=== PATIENT | female | born 2000 | race Caucasian/White ===

== ENCOUNTER 2021-06-12 19:29 | Inpatient (IN) | payer SELFPAY ==
[2021-06-12 19:31] VITALS: BP 153/92; PULSE 134; RESP 18; TEMP 39.4; O2SAT 98; BMI 27.1
[2021-06-12 19:35] VITALS: BP 148/84; PULSE 132; PULSE 135; RESP 21; RESP 25; TEMP 39.4; O2SAT 97; O2SAT 98
--- NOTE | 2021-06-12 20:04 | US_ITS ---
STUDY: ULTRASOUND OF THE FEMALE PELVIS - COMPLETE REASON FOR EXAM: Female, 21 years old. Fever post -- LMP: Unknown. TECHNIQUE: Transabdominal TECHNICAL QUALITY: Adequate. COMPARISON: None. FINDINGS: The uterus is anteverted and is in a midline position. The uterus measures 16.5 x 10.9 x 6.6 cm. Normal uterine cervix. The endometrium measures 30 mm in thickness, and is complex fluid distended. There is no demonstrated endometrial mass. There is no demonstrated myometrial mass. I.U.D. - The patient does not have an I.U.D. The right ovary is visualized. The right ovary measures 2.8 x 1.6 x 1.2 cm. There is no right ovarian cyst or ovarian mass. There is no visualized right adnexal mass or complex lesion. There is normal arterial and normal venous vascularity. The left ovary is non-visualized. There is no fluid in the cul-de-sac. The pre void volume of the bladder was 660 ml. US/Pelvic (Non ) IMPRESSION: Enlarged complex fluid distended endometrium with possible retained products of conception. Electronically Signed: Bronson Richardson MD at 22:52 EDT Reading Location ID and State: [facility] / [place] , Service support ,
--- NOTE | 2021-06-12 20:07 | EDS_ITS ---
HPI HPI - Female History of Present Illness Chief Complaint: Fever Detail of Chief Complaint: Not feeling well post delivery about 1 week ago. Informant: patient Pain Pain: Negative for Pelvic Pain Bleeding Issue: Positive for Vaginal bleeding; Negative for Passing clots and Passing tissue Timing: Intermittent Current Severity: Mild Maximum Severity: Mild Associated Symptoms Associated Symptoms: Negative for Dysuria, Frequency, Urgency and Hematuria P: 1 Ab: 0 Narrative Narrative: [id number] female medical history. Ab0. Had a full-term vaginal delivery about a week ago at [facility]. Post while she was still at the facility she had a fever for maybe a day. Has been doing well. Today said she got anxious after the was circumcised. And was not feeling well. She denies any nausea or vomiting. Denies diarrhea. Denies cough or shortness of breath. Says she still having some bleeding amount of discharge but is not heavy. She denies any significant pelvic pain or dysuria. Prior similar symptoms: No Recent Illness/Hospitalization: No PFSH PFSH Medical History Anxiety Allergy/AdvReac Type Severity Reaction Status Date / Time No Known Allergies Allergy Verified 06/12/21 23:03 Social History Smoking Status: Never smoker ROS ROS ED ROS Narrative Fever. Review of Systems ROS Unobtainable: Denies due to encephalopathy Constitutional Constitutional ED: Reports fever(s) and subjective Eyes Eyes: Denies change in vision ENT ENT ED: Denies ear pain, rhinorrhea or sore throat Cardiovascular Cardiovascular: Denies chest pain Respiratory/Chest Respiratory/Chest: Denies cough, dyspnea or stridor Gastrointestinal Gastrointestinal: Denies abdominal pain, diarrhea, nausea or vomiting Genitourinary Genitourinary ED: Denies dysuria Musculoskeletal Musculoskeletal: Denies myalgias Integumentary Denies rash Neurologic Neurologic: Denies headache(s) Psychiatric Psychiatric: Denies depression Endocrine Endocrinology: Denies polyuria Hematologic/Lymphatic Hematologic/Lymphatic: Denies easy bruising Allergic/Immunologic Allergic/Immunologic ED: Denies urticaria EXAM Physical Exam Narrative Exam Narrative: 29-year-old no acute distress vital signs stable. She does have a fever 102.9 is tachycardic 135. Does not look septic or toxic. H EENT exam unremarkable. Posterior pharynx normal. Neck nontender no meningismus. Lungs clear to auscultation. Heart tachycardic rate about 135 no murmur. Abdomen soft nondistended normal bowel sounds no peritoneal signs. Patient moving all 4 extremities. Calves are nontender without edema or cords. Neurologically she is awake and alert with no focal motor deficits. Back nontender. Const Vital Signs: 06/12/21 19:31 06/12/21 19:35 06/12/21 21:05 Temperature 102.9 F H 102.9 F H 100.3 F H Temperature Source Oral Oral Oral Pulse Rate 134 H 135 H 88 Respiratory Rate 18 25 H 22 H Blood Pressure 153/92 H 148/84 H 159/76 H Blood Pressure Mean 112 105 103 Pulse Ox 98 97 95 Oxygen Delivery Method Room Air Room Air Room Air 06/12/21 21:26 06/12/21 22:30 Temperature 100.9 F H 100.9 F H Temperature Source Oral Oral Pulse Rate 114 H Respiratory Rate 23 H Blood Pressure 136/72 H Blood Pressure Mean 93 Pulse Ox 99 Oxygen Delivery Method Room Air Positive well nourished and well developed; Negative for cachectic, contractures or unkempt General Appearance ED: well developed and NAD; Negative for unkempt, cachectic, contractures or pallor Nutritional Appearance: Negative for cachectic HEENT Reports moist mucous membranes Negative for trauma or tenderness Eyes PERRL and EOMs intact bilaterally General Eye ED: Negative for pale conjunctiva or scleral icterus Neck no lymphadenopathy, supple and no JVD Thyroid: Negative for tender Chest Wall inspection of chest normal and palpation of chest normal Resp normal respiratory effort and clear to auscultation bilaterally Auscultation: Negative for rales, rhonchi or wheezes Cardio regular rhythm, S1 normal heart sound, no murmurs and no JVD; Negative for regular rate Rate: tachycardic GI normal to inspection, nondistended, normoactive bowel sounds, soft to palpation, non-tender, non-distended and no masses Auscultation: normoactive bowel sounds; Negative for hypoactive bowel sounds Palpation: Negative for tender, guarding or rigid no CVA tenderness Back/Spine no CVA tenderness General Back: Negative for CVA tenderness Extremity normal to inspection and full ROM General Extremety ED: Negative for edema or tenderness General Extremity: Negative for edema Neuro oriented x3 Sensorium / Orientation: alert, oriented to person, oriented to place and oriented to time; Negative for confused, lethargic or stuporous Motor Exam: strength 5/5 throughout Psych mental status grossly normal Appearance: Negative for unkempt Attitude: No agitated Mood & Affect: Negative for depressed, anxious or tearful Skin no rashes or lesions noted and no wounds General Skin Exam: Negative for jaundice or pallor Rashes: No rashes noted MDM MDM MDM Narrative Medical decision making narrative: 21-year-old vaginal livery about a week ago now with fever. Consider retained products of conception and endometritis versus UTI versus viral syndrome versus other etiologies. Pelvic exam done female nurse present in room. Small amount of blood in the vaginal vault. No clots. No discharge. Bimanual exam there is absolutely no tenderness. And no signs of endometritis. Speculum exam shows the blood otherwise unremarkable. Patient clinically looks well at 10:54 PM, we are awaiting the ultrasound results. She has breast-fed the baby several times while she is here. Discussed with Dr. Yeni Ha on-call for LIFE ASSURANCE REPRESENTATIVE. Patient will be admitted. She will be started on broad-spectrum antibiotics IV Zosyn. And after Dr. Ha evaluates the patient and all of her results she will decide if she needs a D&C or not. Lab Data Attestation: I reviewed the patient's lab results. Lab results narrative: CBC shows elevated white count 17.9. H&H 9.9 and 29. Platelets of 424. Electrolytes potassium 3.4 gap of 10 normal BUN and creatinine. Glucose 152. Normal liver enzymes. UA negative. No nitrites no white or red cells only rare bacteria. Chest x-ray unremarkable. COVID test negative. Labs: Laboratory Results - last 24 hr 06/12/21 06/12/21 06/12/21 19:40 19:40 21:20 WBC 17.9 H RBC 3.14 L Hgb 9.9 L Hct 29.0 L MCV 92.4 MCH 31.5 MCHC 34.1 RDW Std Deviation 44.7 H RDW Coeff of Sravanthi 13.3 Plt Count 424 MPV 9.5 Immature Gran % (Auto) 1.700 H Neut % (Auto) 88.8 H Lymph % (Auto) 4.6 L Mcpherson % (Auto) 4.5 Eos % (Auto) 0.2 Baso % (Auto) 0.2 Absolute Neuts (auto) 15.9 H Absolute Lymphs (auto) 0.82 L Nucleated RBC % 0 Sodium 136 Potassium 3.4 L Chloride 104 Carbon Dioxide 22.0 Anion Gap 10 BUN 16 Creatinine 0.98 Estim Creat Clear Calc 72.42 Est GFR (MDRD) Af Amer 92 Est GFR (MDRD) Non-Af 76 BUN/Creatinine Ratio 16.3 Glucose 152 H Calcium 8.9 Total Bilirubin 0.20 AST 16 ALT 40 Alkaline Phosphatase 112 Total Protein 7.0 Albumin 2.9 L Globulin 4.1 Albumin/Globulin Ratio 0.7 L Urine Color Yellow Urine Clarity Clear Urine pH 6.5 Ur Specific Blackwell 1.005 Urine Protein Negative Urine Glucose (UA) Normal Urine Ketones Negative Urine Occult Blood 250 H Urine Nitrite Negative Urine Bilirubin Negative Urine Urobilinogen Normal Ur Leukocyte Esterase 100 H Urine RBC 0-5 SEEN Urine WBC 0-5 SEEN Ur Squamous Epith Cells 0 SEEN Urine Bacteria RARE Urine Mucus 0 SEEN Radiography Diagnostic Testing: Clinical Impression(s) from Imaging Studies Pelvis Ultrasound 06/12/21 20:04 IMPRESSION: Enlarged complex fluid distended endometrium with possible retained products of conception. Electronically Signed: Bronson Richardson MD at 22:52 EDT , Chest X-Ray 06/12/21 20:45 IMPRESSION: No acute cardiopulmonary process. Electronically Signed: Jaden Espinosa MD at 21:05 EDT , Chest x-ray, portable, single view shows no acute abnormality. Interpreted myself and radiologist. Discharge Plan Triage Chief Complaint: Fever Other Complaint: Anxiety ED Provider: Dwaine Gutierrez Dx/Rx/DC Orders Clinical Impression: Retained products of conception, , fever, Acute endometritis, Leukocytosis, anemia Primary Care Provider: Care Physician,No Primary Referrals: Care Physician,No Primary [Primary Care Provider] - Disposition Disposition: Acute Care Hospital [facility]
[2021-06-12] MEDS: Acetaminophen 500 MG Tablet 1000 MG PO (20:10)
[2021-06-12] MEDS: 0.9% Normal Saline 1,000 ML 1000 ML IV (20:12)
--- NOTE | 2021-06-12 20:45 | RAD_ITS ---
STUDY: X-RAY CHEST REASON FOR EXAM: Female, 21 years old. fever TECHNIQUE: 1 view COMPARISON: None. FINDINGS: Cardiomediastinal silhouette is unremarkable. Costophrenic angles are sharp. Lungs are clear. The trachea is midline. There is no pneumothorax. The bones are grossly intact. RAD/Chest 1 View (Portable) IMPRESSION: No acute cardiopulmonary process. Electronically Signed: Jaden Espinosa MD at 21:05 EDT ,
[2021-06-12 20:56] LABS: Absolute Lymphocyte Count 0.82 X10^3/uL (0.83-4.51); Absolute Neutrophil Count 15.9 X10^3/uL (2.0-7.7); Basophil# 0.04 X10^3/uL; Basophil% 0.2 % (0-1); Eosinophil# 0.03 X10^3/uL; Eosinophils% 0.2 % (0-5); Hemoglobin 9.9 g/dL (12.0-15.0); Lymphocyte # 0.82 X10^3/ul (0.83-4.51); Lymphocyte % 4.6 % (19-41); Mean Corp Hgb Conc 34.1 g/dL (32-36); Mean Corpuscular Hgb 31.5 pg (27.0-32.0); Mean Corpuscular Volume 92.4 fL (81-99); Mean Platelet Vol. 9.5 fl (6.2-12.0); Monocyte% 4.5 % (0-10); NRBC Flagged by Analyzer 0 % (0-5); Neutrophil # 15.89 X10^3/uL (2.7-7.7); Neutrophil % 88.8 % (47-70); Platelet Count 424 K/mm3 (150-450); RBC Distribution Width CV 13.3 % (11.6-14.6); RBC Distribution Width SD 44.7 fl (35.1-43.9); Red Blood Count 3.14 M/mm3 (4.2-5.4); White Blood Count 17.9 K/mm3 (4.4-11.0)
[2021-06-12 21:05] VITALS: BP 159/76; PULSE 88; RESP 16; RESP 22; TEMP 37.9; O2SAT 95; O2SAT 99
[2021-06-12 21:21] LABS: ALB/GLOB Ratio 0.7 RATIO (0.9-2.4); AST(SGOT) 16 U/L (15-37); Alanine Aminotransfer ALT/SGPT 40 U/L (13-56); Albumin, Serum 2.9 g/dL (3.2-5.0); Alkaline Phosphatase 112 U/L (45-117); Anion Gap 10 (5-15); BUN 16 mg/dL (7-18); BUN/Creat Ratio 16.3 RATIO (10-20); Calcium,Total 8.9 mg/dL (8.5-10.1); Chloride 104 mmol/L (98-107); Creatinine, Serum 0.98 mg/dL (0.55-1.02); EST Glomerular Filtration Rate 76 mL/min (>60); Est Glom Filt Rate - Afr Amer 92 mL/min (>60); Estimated Creatinine Clearance 72.42 ml/min; Globulin 4.1 g/dL (2.2-4.2); Glucose 152 mg/dL (74-106); Potassium 3.4 mmol/L (3.5-5.1); Sodium Level 136 mmol/L (136-145)
[2021-06-12 21:26] VITALS: TEMP 38.3
[2021-06-12 21:29] LABS: Mucous, Urine 0 SEEN /hpf (<or=2+); Squamous Epithelial Cells - UA 0 SEEN /hpf (5-10)
[2021-06-12 21:30] LABS: Color, Urine Yellow (Yellow); Glucose, Dipstick Normal (Normal); Ketone-Dipstick Negative (Negative); Leukocyte Esterase-Dipstick 100 /ul (Negative); Nitrite-Dipstick Negative (Negative); Occult Blood-Urine 250 /ul (Negative); Protein-Dipstick Negative (Negative); Specific Gravity, Urine 1.005 (1.002-1.030); Urine Bilirubin Dipstick Negative (Negative); Urine Clarity Clear (Clear); Urine Urobilinogen Normal (Normal); Urine pH 6.5 (5.0 - 8.0)
[2021-06-12 21:42] LABS: Bacteria RARE /hpf (None Seen); Red Blood Cells-Urine 0-5 SEEN /hpf (0-5); White Blood Cells 0-5 SEEN /hpf (0-5)
[2021-06-12 22:30] VITALS: BP 136/72; PULSE 114; RESP 23; TEMP 38.3; O2SAT 99
[2021-06-12 23:20] VITALS: BP 144/74; PULSE 133; RESP 19; TEMP 38.3; O2SAT 99
[2021-06-13] VITALS (12 sets, daily range): BP systolic 107–125; BP diastolic 51–69; PULSE 74–96; RESP 16–18; TEMP 36.2–37.1; O2SAT 97–100; BMI 25.9
--- NOTE | 2021-06-13 00:33 | NURSING ---
pt is a mother and requested a breast pump. double pump set up in pts room. pt was still in ER when [facility] RNs brought pump into [facility] room. [facility] phone number written on pts white board if assistance is needed with pumping/milk collection.
[2021-06-13] MEDS: 0.9% Normal Saline 1,000 ML 50 ML IV (02:18)
[2021-06-13 05:15] LABS: Absolute Lymphocyte Count 2.08 X10^3/uL (0.83-4.51); Absolute Neutrophil Count 13.8 X10^3/uL (2.0-7.7); Basophil# 0.04 X10^3/uL; Basophil% 0.2 % (0-1); Eosinophil# 0.08 X10^3/uL; Eosinophils% 0.5 % (0-5); Hematocrit 24.5 % (37-47); Lymphocyte # 2.08 X10^3/ul (0.83-4.51); Lymphocyte % 11.9 % (19-41); Mean Corp Hgb Conc 32.7 g/dL (32-36); Mean Corpuscular Hgb 30.5 pg (27.0-32.0); Mean Corpuscular Volume 93.5 fL (81-99); Mean Platelet Vol. 9.2 fl (6.2-12.0); Monocyte# 1.15 X10^3/uL; Monocyte% 6.6 % (0-10); NRBC Flagged by Analyzer 0 % (0-5); Neutrophil # 13.84 X10^3/uL (2.7-7.7); Neutrophil % 79.1 % (47-70); Platelet Count 375 K/mm3 (150-450); RBC Distribution Width CV 13.3 % (11.6-14.6); Red Blood Count 2.62 M/mm3 (4.2-5.4); White Blood Count 17.5 K/mm3 (4.4-11.0)
[2021-06-13] MEDS: Acetaminophen 500 MG Tablet 1000 MG PO ×3 (05:31→19:45)
--- NOTE | 2021-06-13 08:27 | NURSING ---
Pt states she has been NPO since midnight. This nurse at approximately 0800 this morning informed pt to continue not to eat or drink anything this morning. Pt understands.
--- NOTE | 2021-06-13 08:30 | NURSING ---
Mother getting ready for surgery. Baby in the room . Mother feeding or pumping and is using milk as needed. Extra bottles and nipples taken to room. No other questions at this time.
[2021-06-13 08:53] LABS: International Normalized Ratio 1.2
[2021-06-13 08:54] LABS: Partial Thromboplast Time 36.3 Seconds (24.1-36.2)
--- NOTE | 2021-06-13 09:02 | HP.PCM_ITS ---
History and Physical Date of Admission: 06/12/21 22-year-old old female status post vaginal delivery of a 9 pound at the [facility] 9 days ago presents to the emergency room on 06/12/2021 complaining of fever of unknown origin. She states her bleeding has been light. She has had some menstrual type cramping in her lower abdomen. She is breast- feeding the infant has had no breast complaints. She denies any chest pain, shortness of breath, cough. She denies any upper respiratory symptoms. She denies any dysuria. Patient states she did not know she was anemic. She states she had a vaginal delivery without complications and has done well since until she started fevers about 1-1/2 days ago. Past medical history: Denies any significant Past medical history Past surgical history: None Obstetrical history: 1 vaginal delivery of a 9 pound infant without complications 9 days ago. Medications: vitamin Allergies: No known drug allergies Physical exam: Awake, alert, no acute distress Abdomen soft, mildly tender, uterus enlarged and boggy. Ultrasound report and pictures reviewed. Very suspicious for retained products of conception. Chest x-ray reviewed. Labs reviewed. Assessment and plan: 23-year-old female status post vaginal delivery 9 days ago with fevers, and heterogeneous debris in the uterus consistent with possible retained products or infected clot. Discussed with the patient and her . Risk benefits and alternatives to dilation and curettage in the operating room were reviewed with the patient, questions were answered to her satisfaction she desires to proceed. We will continue with IV antibiotics for at least 24 hours postoperatively. Consent was signed.
--- NOTE | 2021-06-13 10:58 | CASEMGMT ---
Social Work Note SW reviewed chart, pt with recent of baby (9 days ago at [facility]) and pt mentioned recent anxiety. Per chart, pt is breast feeding baby and had a vaginal delivery without complications. SW attempted to meet with pt. Pt currently off floor. SW will attempt to meet with pt again as time allows. Nelsy Argueta ASSISTED LIVING MANAGER, STAPLE CUTTER
--- NOTE | 2021-06-13 11:00 | EMB_PTH ---
PATIENT: ERIC ELMORE LOC: [facility] U#:[id number] AGE/SX: 21/F [place] [facility] [place]/13/[address]: Dr. Yeni Ha MD : 2000 BED: 1 DIS: 06/14/2021 SPEC #: [id number] RECD: 06/13/21 16:34 STATUS: CHICO GANT #: [id number] HARITHA: 06/13/21 11:[address]: Yeni Ha DEPT: SURGICAL PATHOLOGY RECD BY: Taty Appiah ENTERED: 06/14/21 08:38 SP TYPE: ENDOM BX/C GUERA DR: No Primary Care Phys Tissues: Endometrium, NOS Procedures: Surgery Specimen Level IV HEADER OPERATION: Dilation and curettage, Suction PRE-OP DIAGNOSIS: Retained Products of Conception TISSUE SUBMITTED: Endometrial curettings MICROSCOPIC DIAGNOSIS Endometrium, curettings: Fibrinopurulent material. Acute and chronic inflammation. Hyalinized tissue. Rare trophoblastic cells. AM/am 06/17/21 COMMENT The specimen is consistent with retained products of conception. Clinical correlation is suggested. MICROSCOPIC DESCRIPTION Slides are reviewed. GROSS DESCRIPTION Received in formalin is one container labeled with the patient name and designated endometrial curettings. The specimen consists of multiple irregular fragments of hemorrhagic soft tissue mixed with blood clot measuring in aggregate 9 x 9 x 2.5 cm. No tissue is identified. Hand Deicer Element Winder tissue is submitted in four cassettes. /SJ 06/16/21 TC:2 CPT: 18598
--- NOTE | 2021-06-13 11:01 | OP.PCM_ITS ---
Problems Associated Problem List Diagnoses (1) fever: (2) Acute endometritis: (3) anemia: (4) Leukocytosis: Report of Operation Date of Procedure: 06/13/21 Pre-Operative Diagnosis: fever, endometritis, possible retained POCs Post-Operative Diagnosis: same Surgery/Procedure Performed:: D&C with ultrasound guidance Description of Surgical Findings:: enlarged uterus with heterogeneous debris, normal cervix and vagina. Perineum with visible external anal sphincter ends and minimal tissue between vagina and rectum- c/w unrepaired 3rd degree lacerat ion Surgeon: Yeni Ha hearing specialist: None Type of Anesthesia: MAC Anesthesiologist: Alonso Corcoran Special Medications: methergine 0.2 mg IM x2 Specimen's removed: endometrial curettings Drains: none Estimated Blood Loss (mL): 30 Fluids Replaced: 500 Description of Procedure: The patient was taken to the waiting room where she is prepped and draped in dorsal lithotomy position. Upon inspection of the perineum, the ends of the external anal sphincter were noted. An obvious defect in the anal sphincter was noted as the puckering around the anus was in a U- shaped instead of the [place] lag[place]. There was minimal tissue between the vagina and rectum. Consistent with just the rectovaginal septum. Cervix was normal in appearance vagina itself was normal. Ultrasound guidance was performed during the surgery. The cervix dilated easily and an 8 mm suction curette was used and placed to the fundus and suction was created. Several passes were made and blood and debris was removed. A gentle sharp curettage was then performed which remove some more blood and debris. Another pass was made with the suction curette and endometrial stripe was noted. There is a small amount of bleeding. Some fundal massage was performed and 1 dose of Methergine IM was given to help retain uterine tone. Patient was taken to recovery room stable condition. Sponge and needle counts were correct. A vaginal sweep was completed by me. I performed the entire procedure. Grafts/Implants Used: none Procedure Start Time: 10:46 Procedure Stop Time: 10:59 Complications none Admit VTE Documentation VTE Present on Admission: No VTE Mechan Device Prophylaxis: None VTE Pharm Prophylaxis ordered?: No Reason prophylaxis not ordered:: Procedure Not Indicated
--- NOTE | 2021-06-13 12:51 | NURSING ---
Soheila from OB, OB RN/[employer] dynamics ax consultant here with pt that just recently returned back from surgery. Pt is breast feeding her baby with Soheila's guidance.
[2021-06-13] MEDS: Docusate Sodium 100 MG Capsule PO (17:58)
[2021-06-14] MEDS: Acetaminophen 500 MG Tablet 1000 MG PO ×2 (00:47→06:26)
[2021-06-14] MEDS: 0.9% Saline Lock 10 ML Syringe IV ×2 (00:48→06:26)
[2021-06-14 06:19] VITALS: BP 100/63; PULSE 69; RESP 16; TEMP 36.6; O2SAT 99
[2021-06-14 06:28] LABS: Absolute Lymphocyte Count 2.29 X10^3/uL (0.83-4.51); Absolute Neutrophil Count 7.3 X10^3/uL (2.0-7.7); Basophil# 0.04 X10^3/uL; Basophil% 0.4 % (0-1); Eosinophil# 0.25 X10^3/uL; Eosinophils% 2.4 % (0-5); Hemoglobin 7.5 g/dL (12.0-15.0); Lymphocyte # 2.29 X10^3/ul (0.83-4.51); Lymphocyte % 21.7 % (19-41); Mean Corp Hgb Conc 31.3 g/dL (32-36); Mean Corpuscular Hgb 30.5 pg (27.0-32.0); Mean Corpuscular Volume 97.6 fL (81-99); Mean Platelet Vol. 9.4 fl (6.2-12.0); Monocyte% 4.7 % (0-10); NRBC Flagged by Analyzer 0 % (0-5); Neutrophil # 7.27 X10^3/uL (2.7-7.7); Neutrophil % 68.7 % (47-70); Platelet Count 353 K/mm3 (150-450); RBC Distribution Width CV 13.3 % (11.6-14.6); RBC Distribution Width SD 47.8 fl (35.1-43.9); Red Blood Count 2.46 M/mm3 (4.2-5.4); White Blood Count 10.6 K/mm3 (4.4-11.0)
--- NOTE | 2021-06-14 08:21 | PCM.PROGNOTE ---
Subjective Subjective Patient seen at bedside, doing well. Patient reports intermittent occasional sharp pains in the rectal area. Patient reports voiding without difficulty. She states that her last bowel movement was 2 days ago. Patient states she does feel like she does have another bowel movement at this time. Patient denies any chills or shortness of breath at this time. She states that her bleeding is minimal. Patient offers no other concerns. Objective Data Objective Data Vital Signs: Vital Signs Temp Pulse Resp BP Pulse Ox 97.9 F 69 16 100/63 99 06/14/21 06:19 06/14/21 06:19 06/14/21 06:19 06/14/21 06:19 06/14/21 06:19 Oxygen Delivery Method Room Air Weight: 64.455 kg Body Mass Index (BMI) 25.9 Intake & Output: Intake and Output for Last 24 Hours 06/12/21 06/13/21 06/14/21 23:59 23:59 23:59 Intake Total 1100 / 1100 1692.5 / 1692.5 50 / 50 Output Total 275 / 275 Balance 1100 / 1100 1417.5 / 1417.5 50 / 50 Lab / Micro Data Result Diagrams: 06/14/21 05:46 06/12/21 19:40 Labs: Laboratory Results - last 24 hr 06/13/21 08:13: PT 15.0 H, INR 1.2, APTT 36.3 H 06/13/21 09:40: Blood Type A NEGATIVE, Antibody Screen POSITIVE H, Antibody Identification ANTI-D 06/14/21 05:46: WBC 10.6, RBC 2.46 L, Hgb 7.5 L, Hct 24.0 L, MCV 97.6, MCH 30.5, MCHC 31.3 L, RDW Std Deviation 47.8 H, RDW Coeff of Sravanthi 13.3, Plt Count 353, MPV 9.4, Immature Gran % (Auto) 2.100 H, Neut % (Auto) 68.7, Lymph % (Auto) 21.7, Coryell % (Auto) 4.7, Eos % (Auto) 2.4, Baso % (Auto) 0.4, Absolute Neuts (auto) 7.3, Absolute Lymphs (auto) 2.29, Nucleated RBC % 0 Micro: Microbiology 06/13/21 Unknown Tissue - Other Gram Stain - Final 06/12/21 20:35 Nasal Secretion SARS-CoV-2 Antigen (Rapid) - Final Physical Exam Narrative Abdomen: Soft nontender to palpation. Uterus well below umbilicus. Const alert and oriented x3 General Appearance: cooperative and comfortable Assessment & Plan Assessment/Plan (1) Retained products of conception, : (2) fever: (3) Acute endometritis: (4) anemia: PLAN: POD #1 s/p D&C for retained POC 1) reviewed perineal wound clinic-I will get this set up for the patient and she will receive a phone call from the [facility] to schedule time due to history of third-degree vaginal laceration that was not repaired at an outside delivery care center. 2) stool softeners, sitz bath's were reviewed with the patient 3) Augmentin x7 days 4) Motrin for pain-reports pain is only intermittent and has not needed any narcotic medications for this 5) iron supplementation 6) dc home today- follow up in office next week
--- NOTE | 2021-06-14 08:24 | PCM.DC ---
Discharge Instructions Diet Discharge Diet: No restrictions Activity May resume sexual activity in: 6-8 weeks Dressing / Incision Call your doctor if you observe: Fever of 101 or Higher, Inability to urinate, Using more than 1 pad per hour and Uncontrolled pain Follow Up Care Please Follow Up With: Mariana Juan MD When: 1-2 weeks post and again at 6 weeks post . [phone] Test Results: Test results from this visit will be discussed in further detail at your follow-up appointment, if applicable. Discharge Plan Admission Admit Date/Time: 06/13/21 10:30 Attending Provider: Yeni Ha Primary Care Provider: Care Physician,Yolanda Primary Discharge Orders/Prescriptions Prescriptions: New docusate sodium 100 mg Capsule 100 mg PO BID Qty: 60 RF: 0 ibuprofen 600 mg Tablet 600 mg PO Q6H PRN PRN (Reason: FEVER/PAIN 1-10) Qty: 60 RF: 0 ferrous sulfate 325 mg (65 mg iron) tablet 325 mg PO BID Qty: 60 RF: 0 amoxicillin-pot clavulanate [Augmentin] 500-125 mg tablet 1 tab PO BID Qty: 14 RF: 0 Continued Complete 14 mg iron- 400 mcg Tablet 1 tab PO DAILY RF: 0 Referrals / Follow Up: Care Physician,No Primary [Primary Care Provider] - Disposition Disposition (needs filled in before D/C Order can be placed): Home, Self Care
--- NOTE | 2021-06-14 09:00 | CASEMGMT ---
JESIKA CRUZ ELECTRONIC SYSTEM ENGINEER CM to room to meet with patient for initial transition planning/care coordination assessment. JESIKA CRUZ introduced self and role at [facility]. Pt voices understanding and consents to assessment at this time. Pt sitting up in bed at this time holding her baby. @ bedside. Pt is A/O at this time and answers all questions appropriately. Care providers, pharmacy, and demographics verified/updated at this time. PCP: No PCP. Provided w/list of local PCP's. Specialists: International Account Representative @ [facility] Preferred Pharmacy: [facility] Retail Insurance: Self-pay Prescription Benefit: none Living Will/HPOA: Pt does not currently have LW/HCPOA. Pt made aware that she can contact as an out-pt and make appt in the future if she decides she would like to talk with someone about this or would like to utilize [facility] social work for advanced directive completion. LNOK: , Steve Living Arrangements: Lives w/ and baby in one-story home w/basement. Independent. Transportation: Pt and both drive. Pt denies transportation concerns. DME: Denies using any DME HHC: No hx of HHC. No needs identified. Pt wishes to return home and states has no concerns with going home at time of discharge. PLAN: Home w/spousal support and discharge plans in place. Angelina MEHTA RN, CM
[2021-06-14 10:11] VITALS: BP 123/81; PULSE 80; RESP 16; TEMP 36.6; O2SAT 99
--- NOTE | 2021-06-14 10:39 | CASEMGMT ---
Social Work SW met with pt and spouse to discuss mental health. Pt denies any concerns stating she feels she had a panic attack on the day of hospitalization as a result of health issues (fever, increased heart rate). Pt denies any prior anxiety or depression nor any after this incident. PETER provided pt with written information on Post Depression and a list of counselors. Pt accepting of information and denies any other needs at this time. ALLIE Xavier
== END 2021-06-14 11:09 | disposition home or self-care (01) | DRG 769 ==
LOC: ED 23:05 → MS3 23:12
PROVIDERS: Anesthesiology; Admitting Provider Obstetrics & Gynecology; Emergency Provider Emergency Medicine; Visit Provider Obstetrics & Gynecology
PROC: 10D17ZZ Extraction of Products of Conception, Retained, Via Natural or Artificial Opening (ICD-10-PCS; principal; 2021-06-13 10:45)
DX: O73.0 Retained placenta without hemorrhage (principal); O86.12 Endometritis following delivery; O86.4 Pyrexia of unknown origin following delivery; O90.81 Anemia of the puerperium; Z28.310 Unvaccinated for COVID-19; Z28.9 Immunization not carried out for unspecified reason
CPT/HCPCS: 36415; 71045; 76856; 80053; 81001; 85025; 85610; 85730; 86850; 86870; 86900; 86901; 87070; 87075; 87205; 87811; 88305; 99285; J7030; A4216; J2405

== ENCOUNTER 2023-10-30 09:59 | Emergency (ER) | payer SELFPAY ==
[2023-10-30] VITALS (8 sets, daily range): BP systolic 110–143; BP diastolic 62–103; PULSE 90–114; RESP 18–20; TEMP 36.6; O2SAT 98–100; BMI 23.8
--- NOTE | 2023-10-30 10:10 | EKG12_ITS ---
Test Reason : PALPS Blood Pressure : / mmHG Vent. Rate : 090 BPM Atrial Rate : 090 BPM P-R Int : 128 ms QRS Dur : 082 ms QT Int : 368 ms P-R-T Axes : 063 083 039 degrees QTc Int : 450 ms Normal sinus rhythm Normal ECG Confirmed by Naveen Chandler ([id number]), makeup editor YARA CLAIRE ([id number]) on 11/02/2023 11:04:44 AM Referred By: Confirmed By:Naveen Chandler
[2023-10-30 10:29] LABS: Absolute Lymphocyte Count 2.09 X10^3/uL (0.83-4.51); Absolute Neutrophil Count 4.9 X10^3/uL (2.0-7.7); Basophil# 0.01 X10^3/uL; Basophil% 0.1 % (0-1); Eosinophil# 0.08 X10^3/uL; Hematocrit 42.9 % (37-47); Hemoglobin 14.6 g/dL (12.0-15.0); Lymphocyte # 2.09 X10^3/ul (0.83-4.51); Mean Corpuscular Hgb 28.9 pg (27.0-32.0); Mean Platelet Vol. 9.2 fl (6.2-12.0); Monocyte# 0.65 X10^3/uL; Monocyte% 8.4 % (0-10); NRBC Flagged by Analyzer 0 % (0-5); Neutrophil # 4.89 X10^3/uL (2.7-7.7); Neutrophil % 63.2 % (47-70); Platelet Count 310 K/mm3 (150-450); RBC Distribution Width CV 12.4 % (11.6-14.6); RBC Distribution Width SD 37.7 fl (35.1-43.9); Red Blood Count 5.05 M/mm3 (4.2-5.4); White Blood Count 7.7 K/mm3 (4.4-11.0)
[2023-10-30 11:21] LABS: Anion Gap 8 (5-15); BUN 19 mg/dL (7-18); BUN/Creat Ratio 21.6 RATIO (10-20); Calcium,Total 9.4 mg/dL (8.5-10.1); Chloride 106 mmol/L (98-107); Creatinine, Serum 0.88 mg/dL (0.55-1.02); EST Glomerular Filtration Rate 85 mL/min (>60); Est Glom Filt Rate - Afr Amer 103 mL/min (>60); Estimated Creatinine Clearance 79.31 ml/min; Glucose 102 mg/dL (74-106); Potassium 3.9 mmol/L (3.5-5.1); Sodium Level 139 mmol/L (136-145)
--- NOTE | 2023-10-30 14:44 | EDS_ITS ---
HPI History of Present Illness Chief Complaint: Palpitations Detail of Chief Complaint: Patient presents with palpitations. Heart rate is rapid. Informant: patient Onset/Context/Timing Onset: Days Context: Sudden Onset Timing: Continuous Quality: Palpitations. Heart rate presumed to be elevated. Location: Cardiovascular Current Severity: Gone Maximum Severity: Moderate Worsened by: Nothing specific Relieved by: Nothing Associated Symptoms Associated Symptoms: Lightheadedness Narrative Narrative: Patient is a 23-year-old female with no significant past medical history other than iron deficiency anemia during one of her pregnancies. She presents with palpitations, rapid heartbeat and lightheadedness. She denies chest pressure, tightness or heaviness. She denies dyspnea or dyspnea on exertion. She denies orthopnea or PND. She denies history of VTE. She denies leg pain, swelling discoloration. She denies black or maroon-colored stool. Prior similar symptoms: No Recent Illness/Hospitalization: No PFSH PFS Medical History Hypertension Anxiety Home Medications ?Medication ?Instructions ?Recorded ?Last Taken ?Type vits,calcium 21-iron fum 1 tab PO DAILY supplement 06/13/21 Unknown History 14 mg iron-folic acid 400 mcg tablet ( Complete) amoxicillin 500 mg-potassium 1 tab PO BID #14 tabs 06/14/21 Unknown Rx clavulanate 125 mg tablet (Augmentin) docusate sodium 100 mg capsule 100 mg PO BID #60 caps 06/14/21 Unknown Rx ferrous sulfate 325 mg (65 mg 325 mg PO BID #60 tabs 06/14/21 Unknown Rx iron) tablet ibuprofen 600 mg tablet 600 mg PO Q6H PRN PRN FEVER/PAIN 06/14/21 Unknown Rx 1-10 #60 tabs Allergy/AdvReac Type Severity Reaction Status Date / Time No Known Allergies Allergy Verified 06/12/21 23:03 Social History (Updated 10/30/23 @ 14:[address] Tod Bragg MD) household members: spouse and children Smoking Status: Never smoker substance use type: does not use ROS ROS ED Constitutional Constitutional ED: Denies chills, fever(s), subjective or weight loss Eyes Eyes: Denies blurry vision or change in vision ENT ENT ED: Denies ear pain or rhinorrhea Cardiovascular Cardiovascular: Reports palpitations and racing heartbeat; Denies chest pain Respiratory/Chest Respiratory/Chest: Denies cough, dyspnea or dyspnea on exertion Gastrointestinal Gastrointestinal: Denies abdominal pain, constipation, melena or nausea Musculoskeletal Musculoskeletal: Denies arthralgias or myalgias Integumentary Denies rash Neurologic Neurologic: Denies headache(s) or paresthesias Psychiatric Psychiatric: Denies anxiety or depression Hematologic/Lymphatic Hematologic/Lymphatic: Reports systems reviewed and no addt'l complaints, except as documented EXAM Physical Exam Narrative Exam Narrative: Patient presents with palpitations. There was a delay in discharge and patient because of acuity in the department. Patient was made aware of this. She understood. Because there may have been weight loss/weight gain TSH was obtained. Patient does not have delayed relaxation phase of her ankle reflex. She does not believe she is lost or gained weight. She really does not admit to heat or cold intolerance either. Const Vital Signs: 10/30/23 10:02 10/30/23 10:34 10/30/23 11:00 Temperature 97.8 F Temperature Source Temporal Pulse Rate 114 H 103 H Pulse Rate [Lying] 90 Pulse Rate [Sitting (for 1 minute prior to obtaining)] 95 Pulse Rate [Standing (for 1 minute prior to obtaining)] 102 H Respiratory Rate 18 18 Blood Pressure 143/103 H 118/64 Blood Pressure [Lying] 120/79 Blood Pressure [Sitting (for 1 minute prior to obtaining)] 118/78 Blood Pressure [Standing (for 1 minute prior to obtaining)] 126/86 H Blood Pressure Mean 116 82 Blood Pressure Mean [Lying] 92 Blood Pressure Mean [Sitting (for 1 minute prior to obtaining)] 91 Blood Pressure Mean [Standing (for 1 minute prior to obtaining)] 99 Pulse Ox 100 99 Oxygen Delivery Method Room Air 10/30/23 12:00 10/30/23 13:42 10/30/23 14:00 Temperature 97.8 F Temperature Source Oral Pulse Rate 100 95 95 Pulse Rate [Lying] Pulse Rate [Sitting (for 1 minute prior to obtaining)] Pulse Rate [Standing (for 1 minute prior to obtaining)] Respiratory Rate 18 20 H 20 H Blood Pressure 120/62 112/80 110/71 Blood Pressure [Lying] Blood Pressure [Sitting (for 1 minute prior to obtaining)] Blood Pressure [Standing (for 1 minute prior to obtaining)] Blood Pressure Mean 81 90 84 Blood Pressure Mean [Lying] Blood Pressure Mean [Sitting (for 1 minute prior to obtaining)] Blood Pressure Mean [Standing (for 1 minute prior to obtaining)] Pulse Ox 99 98 99 Oxygen Delivery Method Room Air Room Air Positive well nourished and well developed General Appearance ED: well developed and NAD; Negative for pallor HEENT Reports moist mucous membranes HEENT Narrative: Head is atraumatic normocephalic. Ears normal. Posterior pharynx normal. Eyes PERRL and EOMs intact bilaterally General Eye ED: Negative for pale conjunctiva or scleral icterus Neck no lymphadenopathy, supple and no JVD Chest Wall inspection of chest normal and palpation of chest normal Resp normal respiratory effort and clear to auscultation bilaterally Cardio regular rhythm, S1 normal heart sound, S2 normal heart sound and no murmurs Rate: tachycardic GI normal to inspection, nondistended, normoactive bowel sounds, non-tender, non- distended and no masses; Negative for hepatosplenomegaly Back/Spine no CVA tenderness Extremity normal to inspection Neuro oriented x3, CN's II-XII intact bilaterally and no sensory deficits noted Sensorium / Orientation: alert Motor Exam: strength 5/5 throughout Psych mental status grossly normal Skin no rashes or lesions noted, no wounds and skin turgor normal General Skin Exam: Negative for elasticity normal, jaundice or pallor MDM MDM MDM Narrative Medical decision making narrative: Patient presents with palpitations. Need to evaluate for electrolyte abnormality, reasons for sinus tachycardia which would include fever that patient does not have. Thyroid disease, anxiety sympathomimetic medication. She is presently on none. Lab Data Attestation: I reviewed the patient's lab results. Lab results narrative: CBC and BMP are normal. Labs: Laboratory Results - last 24 hr 10/30/23 10:15 WBC 7.7 RBC 5.05 Hgb 14.6 Hct 42.9 MCV 85.0 MCH 28.9 MCHC 34.0 RDW Std Deviation 37.7 RDW Coeff of Sravanthi 12.4 Plt Count 310 MPV 9.2 Immature Gran % (Auto) 0.300 Neut % (Auto) 63.2 Lymph % (Auto) 27.0 Banner % (Auto) 8.4 Eos % (Auto) 1.0 Baso % (Auto) 0.1 Absolute Neuts (auto) 4.9 Absolute Lymphs (auto) 2.09 Nucleated RBC % 0 Sodium 139 Potassium 3.9 Chloride 106 Carbon Dioxide 25.0 Anion Gap 8 BUN 19 H Creatinine 0.88 Estim Creat Clear Calc 79.31 Est GFR (MDRD) Af Amer 103 Est GFR (MDRD) Non-Af 85 BUN/Creatinine Ratio 21.6 H Glucose 102 Calcium 9.4 TSH 3.740 Rhythm Strip Rhythm Strip: Sinus Tach Rate: 106 Ectopy: None EKG Initial EKG: Attestation: I personally reviewed and interpreted this EKG as follows: Interpretation: Sinus Rhythm (Rate is 90. The EKG is normal. [place] interval is under 20 ms. QS duration 82 ms. QT duration 3 and 60 ms. [place] is normal.) Treatment and Re-Evaluation :: Will call results of TSH the patient. She would like to follow-up with [facility] doctor. Dr. Roshan Zacarias is on for primary care for the clinic. 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, Palpitations, Orthostatic lightheadedness Instructions: ED About Arrhythmias Prescriptions: No Action Complete 14 mg iron- 400 mcg Tablet 1 tab PO DAILY docusate sodium 100 mg Capsule 100 mg PO BID Qty: 60 0RF ibuprofen 600 mg Tablet 600 mg PO Q6H PRN PRN (Reason: FEVER/PAIN 1-10) Qty: 60 0RF ferrous sulfate 325 mg (65 mg iron) tablet 325 mg PO BID Qty: 60 0RF amoxicillin-pot clavulanate [Augmentin] 500-125 mg tablet 1 tab PO BID Qty: 14 0RF Primary Care Provider: Care Physician,No Primary Referrals: Moiz Bryant MD [Non-Staff] - 5-7 Days Care Physician,No Primary [Primary Care Provider] - Print Language: Prydeinig Disposition Disposition: Home, Self Care
== END 2023-10-30 15:12 | disposition home or self-care (01) ==
PROVIDERS: Emergency Provider Emergency Medicine; Visit Provider Emergency Medicine
DX: R00.2 Palpitations (principal); R00.0 Tachycardia, unspecified; R42 Dizziness and giddiness
CPT/HCPCS: 80048; 84443; 85025; 93005; 99285; A4216